=== PATIENT | female | born 1985 | race African-American/Black ===

== ENCOUNTER 2017-11-09 12:46 | Emergency (ER) | payer SELFPAY ==
[~2017-11-09] VITALS: Ht 160 cm; Wt 79.8 kg
[~2017-11-09 12:46] MED LIST: NAPR500T4 PO; OXYC-323 PO; PNV1TABL25 PO
[2017-11-09 13:00] VITALS: BP 113/64
[2017-11-09] MEDS ORDERED: NAPROXEN 500 MG TABLET PO STA (13:27)
[2017-11-09] MEDS ORDERED: HYDROcodone/APAP 5/325MG 1 TAB TABLET PO ONE (13:30)
[2017-11-09] MEDS ORDERED: HYDR-971 PO (13:58)
--- NOTE | 2017-11-09 13:58 | PHYS DOC ---
Past Medical History Past Medical History: No Pertinent History Past Surgical History: Alcohol Use: None Drug Use: None Adult General Chief Complaint Chief Complaint: LACERATION/AVULSION HPI HPI Patient is a 32 year old female who presents with labia minora lacerations, patient states she fell on a [place] tree leg. Patient denies any loss of consciousness. Review of Systems Review of Systems Constitutional: Denies fever or chills [] Eyes: Denies change in visual acuity, redness, or eye pain [] HENT: Denies nasal congestion or sore throat [] Respiratory: Denies cough or shortness of breath [] Cardiovascular: No additional information not addressed in HPI [] GI: Denies abdominal pain, nausea, vomiting, bloody stools or diarrhea [] : Denies dysuria or hematuria [] Musculoskeletal: Denies back pain or joint pain [] Integument: labia minora lacerations Neurologic: Denies headache, focal weakness or sensory changes [] All other systems were reviewed and found to be within normal limits, except as documented in this note. Current Medications Current Medications Current Medications Medications (Trade) Dose Ordered Sig/Sydnee Start Time Stop Time Status Last Admin Dose Admin Acetaminophen/ Hydrocodone Bitart (Lortab 5/325) 1 tab 1X ONCE 11/09/17 13:30 11/09/17 13:31 DC Naproxen (Naprosyn) 500 mg 1X STAT 11/09/17 13:27 11/09/17 13:31 DC 11/09/17 13:37 500 MG Allergies Allergies Allergies Coded Allergies Type Severity Reaction Last Updated Verified No Known Drug Allergies 08/09/14 No Physical Exam Physical Exam Constitutional: Well developed, well nourished, no acute distress, non-toxic appearance. [] HENT: Normocephalic, atraumatic, bilateral external ears normal, oropharynx moist, no oral exudates, nose normal. [] Eyes: PERRLA, EOMI, conjunctiva normal, no discharge. [] Neck: Normal range of motion, no tenderness, supple, no stridor. [] Cardiovascular:Heart rate regular rhythm, no murmur [] Lungs & Thorax: Bilateral breath sounds clear to auscultation [] Abdomen: Bowel sounds normal, soft, no tenderness, no masses, no pulsatile masses. [] Skin: Warm, dry, upper part of bilateral labia minora with 2 tiny lacerations one on each side of the labia minora approximately 0.5 cm each from what I could see. Patient states the exam is uncomfortable and was not willing to keep her legs spread out for full examination. The lacerations look small. Back: No tenderness, no CVA tenderness. [] Extremities: No tenderness, no cyanosis, no clubbing, ROM intact, no edema. [] Neurologic: Alert and oriented X 3, normal motor function, normal sensory function, no focal deficits noted. [] Psychologic: Affect normal, judgement normal, mood normal. [] Current Patient Data Vital Signs Vital Signs Date Time Temp Pulse Resp B/P (MAP) Pulse Ox O2 Delivery O2 Flow Rate FiO2 11/09/17 13:00 98.5 95 17 99 Room Air 98.5 EKG EKG [] Radiology/Procedures Radiology/Procedures [] Course & Med Decision Making Course & Med Decision Making Pertinent Labs and Imaging studies reviewed. (See chart for details) Patient has labial minor lacerations on both side, the lacerations were hard to examine because patient is very uncomfortable not willing to keep her legs spread out. Offered patient two choice one closing the areas as well as letting it heal on its own. Patient decided she would like the areas to heal on their own. Recommended Neosporin to the area. Instructed to keep the area clean and dry. Provided a plastic surgeon for follow-up as needed. Tetanus up to date. Dragon Disclaimer Dragon Disclaimer This electronic medical record was generated, in whole or in part, using a voice recognition dictation system. Departure Departure Impression: Primary Impression: Laceration of labia minora Disposition: 01 HOME, SELF-CARE Condition: STABLE Referrals: RUPESH DEGROOT (PCP) follow up with your doctor in one week. You can also follow up with a plastic surgeon at [facility] this week. Dr. Hines [phone] Patient Instructions: Laceration Care, Adult Additional Instructions: Yo have Labia minora lacerations. Keep the areas clean and dry. Apply Neosporin to the area twice a day. You can shower. You can follow-up with the plastic surgeon at [facility] in the course of this week. Her name is Dr. Hines phone number is [phone]. Monitor the area for signs and symptoms of infection including but not limited to increased redness to the area , yellow drainage from the area, warmth to the area and return to the Ed if they occur Scripts Hydrocodone/Apap 5-325 (NORCO 5-325 TABLET) 1 Each Tablet 1-2 TAB PO Q4-6HRS Y for PAIN, #20 TAB Prov: JOAN ANTOINE APRN 11/09/17 Problem Qualifiers Primary Impression: Laceration of labia minora Encounter type: initial encounter Qualified Codes: S31.41XA - Laceration without foreign body of vagina and vulva, initial encounter JOAN ANTOINE APRN Nov 09, 2017 13:58
== END 2017-11-09 14:05 | disposition home or self-care (01) ==
LOC: ER 12:46
DX: S31.41XA Laceration without foreign body of vagina and vulva, initial encounter (principal); W01.198A Fall on same level from slipping, tripping and stumbling with subsequent striking against other object, initial encounter; Y93.89 Activity, other specified; Y92.89 Other specified places as the place of occurrence of the external cause; Y99.8 Other external cause status
CPT/HCPCS: 99283

== ENCOUNTER 2018-07-09 23:55 | Emergency (ER) | payer SELFPAY ==
[~2018-07-09] VITALS: Ht 160 cm; Wt 79.8 kg
[~2018-07-09 23:55] MED LIST changes: +HYDR-971 PO; +NAPR-514 PO; -NAPR500T4 PO
--- NOTE | 2018-07-10 00:44 | PHYS DOC ---
Past Medical History Past Medical History: No Pertinent History Past Surgical History: Alcohol Use: None Drug Use: None Adult General Chief Complaint Chief Complaint: PAIN ON URINATION HPI HPI 33-year-old female presents to ER with complaints of 1-1/2 day history of dysuria and lower abdominal discomfort. Patient reports she also started her menstrual cycle a few days ago and does have cramping satiated with her menstrual cycles. Patient denies any fever or chills. Patient denies any nausea or vomiting. She reports she has had mild lower back pain. Patient denies any other symptoms. Patient has concerns for urinary tract infection. Patient denies any vaginal symptoms prior to onset of menstrual cycle. Review of Systems Review of Systems Constitutional: Denies fever or chills [] Eyes: Denies change in visual acuity, redness, or eye pain [] HENT: Denies nasal congestion or sore throat [] Respiratory: Denies cough or shortness of breath [] Cardiovascular: Denies chest pain or palpitations GI: Denies abdominal pain, nausea, vomiting, bloody stools or diarrhea [] : Denies hematuria. Patient reports increase in urination and dysuria Musculoskeletal: Denies joint pain or swelling. Reports mild lower back pain [] Integument: Denies rash or skin lesions [] Neurologic: Denies headache, focal weakness or sensory changes [] All other systems were reviewed and found to be within normal limits, except as documented in this note. Allergies Allergies Allergies Coded Allergies Type Severity Reaction Last Updated Verified No Known Drug Allergies 08/09/14 No Physical Exam Physical Exam Constitutional: Well developed, well nourished, no acute distress, non-toxic appearance. [] HENT: Normocephalic, atraumatic, bilateral ears normal, mucous membranes pink and moist, nose normal. [] Eyes: PERRLA, conjunctiva normal, no discharge. [] Neck: Normal range of motion, no tenderness, supple, no stridor. [] Cardiovascular:Heart rate regular rhythm, no murmur [] Lungs & Thorax: Bilateral breath sounds clear to auscultation. Resp. equal/ nonlabored Abdomen: Bowel sounds normal, soft/mild suprapubic tenderness without distention , no masses Skin: Warm, dry, no erythema, no rash. [] Back: No tenderness, no CVA tenderness. [] Extremities: No tenderness, no cyanosis, no clubbing, ROM intact, no edema. [] Neurologic: Alert and oriented X 3, normal motor function, normal sensory function, no focal deficits noted. [] Psychologic: Affect normal, judgement normal, mood normal. [] Current Patient Data Vital Signs Vital Signs Date Time Temp Pulse Resp B/P (MAP) Pulse Ox O2 Delivery O2 Flow Rate FiO2 07/10/18 00:00 98.3 85 16 118/77 (91) 100 Room Air 98.3 Lab Values Laboratory Tests Test 07/10/18 00:00 07/10/18 00:05 Urine Collection Type Unknown Urine Color Yellow Urine Clarity Cloudy Urine pH 6.5 Urine Specific [place] >=1.030 Urine Protein 100 mg/dL (NEG-TRACE) Urine Glucose (UA) Negative mg/dL (NEG) Urine Ketones (Stick) Trace mg/dL (NEG) Urine Blood Large (NEG) Urine Nitrite Positive (NEG) Urine Bilirubin Negative (NEG) Urine Urobilinogen Dipstick 1.0 mg/dL (0.2 mg/dL) Urine Leukocyte Esterase Moderate (NEG) Urine RBC Tntc /HPF (0-2) Urine WBC >40 /HPF (0-4) Urine Squamous Epithelial Cells Few /LPF Urine Bacteria Many /HPF (0-FEW) Urine Mucus Slight /LPF POC Urine HCG, Qualitative Hcg negative (Negative) EKG EKG [] Radiology/Procedures Radiology/Procedures [] Course & Med Decision Making Course & Med Decision Making Pertinent Labs reviewed. (See chart for details) [] Dragon Disclaimer Dragon Disclaimer This electronic medical record was generated, in whole or in part, using a voice recognition dictation system. Departure Departure Impression: Primary Impression: Urinary tract infection Disposition: 01 HOME, SELF-CARE Condition: STABLE Referrals: RUPESH DEGROOT (PCP) Patient Instructions: Urinary Tract Infection Additional Instructions: Drink plenty of water. Tylenol and/or Ibuprofen as needed for pain as directed on container. Pyridium prescription can can urine to be orange. Follow-up with primary doctor if symptoms persist or worsen. Scripts Phenazopyridine Hcl (PYRIDIUM) 100 Mg Tablet 100 MG PO TID, #14 TAB 0 Refills Prov: JEOVANNY MESA APRN 07/10/18 Cephalexin (KEFLEX) 500 Mg Capsule 1 CAP PO BID, #14 CAP 0 Refills Prov: REFFITT,JEOVANNY M TASSEL MAKER 07/10/18 JEOVANNY MESA APRN Jul 10, 2018 00:44
[2018-07-10 01:12] LABS: BILIRUBIN,URINE NEGATIVE (NEG); CLARITY,URINE CLOUDY; COLOR,URINE YELLOW; NITRITE,URINE POSITIVE (NEG); PH,URINE 6.5; PROTEIN,URINE 100 mg/dL (NEG-TRACE)
[2018-07-10 01:19] LABS: BACTERIA,URINE MANY /HPF (0-FEW); RBC,URINE TNTC /HPF (0-2); WBC,URINE >40 /HPF (0-4)
[2018-07-10 01:20] LABS: SQUAMOUS EPITHELIAL CELL,UR FEW /LPF
[2018-07-10] MEDS ORDERED: CEPH-264 PO (01:28)
[2018-07-10] MEDS ORDERED: PHEN100T82 PO (01:28)
[2018-07-10] MEDS ORDERED: PHENAZOPYRIDINE 200 MG TABLET. PO ONE ×2 (01:30→01:45)
[2018-07-10] MEDS ORDERED: CEPHALEXIN 250 MG CAPSULE. PO ONE (01:45)
== END 2018-07-10 01:49 | disposition home or self-care (01) ==
LOC: ER 23:55
DX: N39.0 Urinary tract infection, site not specified (principal); Z98.890 Other specified postprocedural states
CPT/HCPCS: 81001; 81025; 87086; 99284

== ENCOUNTER 2019-02-17 16:15 | Emergency (ER) | payer SELFPAY ==
[~2019-02-17] VITALS: Ht 160 cm; Wt 78.5 kg
[~2019-02-17 16:15] MED LIST changes: +CEPH-264 PO; +HYDR-3164 PO; -HYDR-971 PO; -OXYC-323 PO; +OXYC1TAB15 PO; +PHEN100T82 PO
[2019-02-17] MEDS ORDERED: IV NORMAL SALINE 500ML BAG 500 ML IV SCH (17:30)
[2019-02-17] MEDS ORDERED: MECLIZINE HCL 12.5 MG TABLET. PO ONE (17:30)
[2019-02-17 17:36] LABS: BILIRUBIN,URINE NEGATIVE (NEG); CLARITY,URINE CLEAR; COLOR,URINE YELLOW; NITRITE,URINE NEGATIVE (NEG); PH,URINE 6.5; PROTEIN,URINE NEGATIVE (NEG-TRACE)
[2019-02-17 17:36] LABS: BASO % 1 % (0-3); EOS # 0.2 x10^3/uL (0.0-0.7); EOS % 2 % (0-3); HEMATOCRIT 38.1 % (36.0-47.0); HEMOGLOBIN 12.4 g/dL (12.0-15.5); LYMPH % 31 % (24-48); MEAN CORPUSCULAR HEMOGLOBIN 29 pg (25-35); MEAN CORPUSCULAR HGB CONC 33 g/dL (31-37); MEAN CORPUSCULAR VOLUME 89 fL (79-100); MONO # 0.4 x10^3/uL (0.0-1.1); MONO % 6 % (0-9); NEUT % 60 % (31-73); PLATELET COUNT 339 x10^3/uL (140-400); RED BLOOD COUNT 4.26 x10^6/uL (3.50-5.40); RED CELL DISTRIBUTION WIDTH 13.5 % (11.5-14.5); WHITE BLOOD COUNT 6.6 x10^3/uL (4.0-11.0)
[2019-02-17 17:43] LABS: CALCIUM 9.3 mg/dL (8.5-10.1); CREATININE 0.9 mg/dL (0.6-1.0); GFR 87.8; POTASSIUM 4.2 mmol/L (3.5-5.1)
[2019-02-17 17:48] LABS: ALBUMIN/GLOBULIN RATIO 1.1 (1.0-1.7); MAGNESIUM 1.9 mg/dL (1.8-2.4); TOTAL BILIRUBIN 0.3 mg/dL (0.2-1.0); TOTAL PROTEIN 7.8 g/dL (6.4-8.2)
--- NOTE | 2019-02-17 17:56 | PHYS DOC ---
Past Medical History Past Medical History: No Pertinent History (IRON SCHWARTZ MD) Past Surgical History: (IRON SCHWARTZ MD) Additional Information: 0.25 PPD Alcohol Use: None Drug Use: None (IRON SCHWARTZ MD) Adult General Chief Complaint Chief Complaint: DIZZY/LIGHT HEADED HPI HPI Patient is a 34 year old female who presents with complaining of intermittent episodes of dizziness for couple days. Patient states she has had 2-3 episodes of dizziness that usually last for a few minutes and associated with shortness of breath without nausea, chest pain, focal neuro deficit, headache, fever and chills. Patient states the dizziness is not related to position or standing up. Patient states she had episodes of dizziness previously and diagnosed with anxiety. Patient states she gets episodes of shortness of breath sometimes at night because of anxiety. (IRON SCHWARTZ MD) Review of Systems Review of Systems Constitutional: Denies fever or chills [] Eyes: Denies change in visual acuity, redness, or eye pain [] HENT: Denies nasal congestion or sore throat [] Respiratory: Denies cough or shortness of breath [] Cardiovascular: No additional information not addressed in HPI [] GI: Denies abdominal pain, nausea, vomiting, bloody stools or diarrhea [] : Denies dysuria or hematuria [] Musculoskeletal: Denies back pain or joint pain [] Integument: Denies rash or skin lesions [] Neurologic: Denies headache, focal weakness or sensory changes [] Endocrine: Denies polyuria or polydipsia [] All other systems were reviewed and found to be within normal limits, except as documented in this note. (IRON SCHWARTZ MD) Current Medications Current Medications Current Medications Medications (Trade) Dose Ordered Sig/Sydnee Start Time Stop Time Status Last Admin Dose Admin Meclizine HCl (Antivert) 25 mg 1X ONCE 02/17/19 17:30 02/17/19 17:32 DC 02/17/19 17:46 25 MG Sodium Chloride 500 ml @ 500 mls/hr Q1H 02/17/19 17:30 02/17/19 17:47 DC 02/17/19 17:47 500 MLS/HR (THONY WEEKS DO) Allergies Allergies Allergies Coded Allergies Type Severity Reaction Last Updated Verified No Known Drug Allergies 08/09/14 No (THONY WEEKS DO) Physical Exam Physical Exam Constitutional: Well developed, well nourished, no acute distress, non-toxic appearance. [] HENT: Normocephalic, atraumatic, oropharynx moist, no oral exudates, nose normal. [] Eyes: PERRLA, EOMI, conjunctiva normal, no discharge. [] Neck: Normal range of motion, no tenderness, supple, no stridor. [] Cardiovascular:Heart rate regular rhythm, no murmur [] Lungs & Thorax: Bilateral breath sounds clear to auscultation [] Abdomen: Bowel sounds normal, soft, no tenderness, no masses, no pulsatile masses. [] Skin: Warm, dry, no erythema, no rash. [] Back: No tenderness, no CVA tenderness. [] Extremities: No tenderness, no cyanosis, no clubbing, ROM intact, no edema. [] Neurologic: Alert and oriented X 3, normal motor function, normal sensory function, no focal deficits noted. [] Psychologic: Affect anxious, judgement normal, mood normal. [] (IRON SCHWARTZ MD) Physical Exam Constitutional: No acute distress, non-toxic appearance. [] Lungs & Thorax: Airway open, No respiratory distress Abdomen: Soft, no tenderness, Skin: Warm, dry Back: No tenderness, no CVA tenderness. [] Neurologic: Alert and oriented X 3, normal motor function, normal sensory function, no focal deficits noted. [] Psychologic: Affect anxious, judgement normal (THONY WEEKS DO) Current Patient Data Vital Signs Vital Signs Date Time Temp Pulse Resp B/P (MAP) Pulse Ox O2 Delivery O2 Flow Rate FiO2 02/17/19 16:40 98.4 82 20 108/67 (81) 100 Room Air 98.4 (THONY WEEKS DO) Lab Values Laboratory Tests Test 02/17/19 16:42 02/17/19 16:48 02/17/19 17:00 Urine Color Yellow Urine Clarity Clear Urine pH 6.5 Urine Specific [place] >=1.030 Urine Protein Negative mg/dL (NEG-TRACE) Urine Glucose (UA) Negative mg/dL (NEG) Urine Ketones (Stick) Negative mg/dL (NEG) Urine Blood Negative (NEG) Urine Nitrite Negative (NEG) Urine Bilirubin Negative (NEG) Urine Urobilinogen Dipstick 1.0 mg/dL (0.2 mg/dL) Urine Leukocyte Esterase Negative (NEG) Urine RBC 0 /HPF (0-2) Urine WBC 1-4 /HPF (0-4) Urine Squamous Epithelial Cells Occ /LPF Urine Bacteria Few /HPF (0-FEW) Urine Mucus Mod /LPF POC Urine HCG, Qualitative Hcg negative (Negative) White Blood Count 6.6 x10^3/uL (4.0-11.0) Red Blood Count 4.26 x10^6/uL (3.50-5.40) Hemoglobin 12.4 g/dL (12.0-15.5) Hematocrit 38.1 % (36.0-47.0) Mean Corpuscular Volume 89 fL (79-100) Mean Corpuscular Hemoglobin 29 pg (25-35) Mean Corpuscular Hemoglobin Concent 33 g/dL (31-37) Red Cell Distribution Width 13.5 % (11.5-14.5) Platelet Count 339 x10^3/uL (140-400) Neutrophils (%) (Auto) 60 % (31-73) Lymphocytes (%) (Auto) 31 % (24-48) Monocytes (%) (Auto) 6 % (0-9) Eosinophils (%) (Auto) 2 % (0-3) Basophils (%) (Auto) 1 % (0-3) Neutrophils # (Auto) 4.0 x10^3uL (1.8-7.7) Lymphocytes # (Auto) 2.0 x10^3/uL (1.0-4.8) Monocytes # (Auto) 0.4 x10^3/uL (0.0-1.1) Eosinophils # (Auto) 0.2 x10^3/uL (0.0-0.7) Basophils # (Auto) 0.0 x10^3/uL (0.0-0.2) Sodium Level 139 mmol/L (136-145) Potassium Level 4.2 mmol/L (3.5-5.1) Chloride Level 101 mmol/L (98-107) Carbon Dioxide Level 26 mmol/L (21-32) Anion Gap 12 (6-14) Blood Urea Nitrogen 11 mg/dL (7-20) Creatinine 0.9 mg/dL (0.6-1.0) Estimated GFR (Cockcroft-Gault) 87.8 BUN/Creatinine Ratio 12 (6-20) Glucose Level 83 mg/dL (70-99) Calcium Level 9.3 mg/dL (8.5-10.1) Magnesium Level 1.9 mg/dL (1.8-2.4) Total Bilirubin 0.3 mg/dL (0.2-1.0) Aspartate Amino Transferase (AST) 14 U/L (15-37) L Alanine Aminotransferase (ALT) 19 U/L (14-59) Alkaline Phosphatase 79 U/L (46-116) Troponin I Quantitative < 0.017 ng/mL (0.000-0.055) Total Protein 7.8 g/dL (6.4-8.2) Albumin 4.0 g/dL (3.4-5.0) Albumin/Globulin Ratio 1.1 (1.0-1.7) Laboratory Tests 02/17/19 17:00 Laboratory Tests 02/17/19 17:00 (THONY WEEKS DO) EKG EKG EKG interpreted by me. EKG at 1657 showed normal sinus rhythm at rate of 85, normal FL and QT intervals, no acute ST and T-wave abnormalities. (IRON SCHWARTZ MD) Radiology/Procedures Radiology/Procedures [] (IRON SCHWARTZ MD) Course & Med Decision Making Course & Med Decision Making Pertinent Labs and Imaging studies are pending. Evaluation of patient in ER showed 34-year-old female patient with complaining of episodes of dizziness for a few days. Patient had unremarkable physical exam and EKG. Labs are pending. Patient care transferred to Dr. Weeks at 1800. (IRON SCHWARTZ MD) Course & Med Decision Making Sign out received from Dr. Schwartz for patient with episodes of dizziness. Patient does reports some increased anxiety and thinks might be secondary to stress. Patient seen and evaluated by myself. Labs reviewed and unremarkable. Patient reports she feels well and is ready for discharge home. Patient stable for discharge with outpatient follow-up with PCP. Discussed findings and plan with patient, who acknowledges understanding and agreement. (THONY WEEKS DO) Dragon Disclaimer Dragon Disclaimer This electronic medical record was generated, in whole or in part, using a voice recognition dictation system. (IRON SCHWARTZ MD) Departure Departure Impression: Primary Impression: Dizziness Additional Impression: Anxiety Disposition: 01 HOME, SELF-CARE Condition: STABLE Referrals: RUPESH DEGROOT (PCP) Patient Instructions: Anxiety and Panic Attacks, Sdkb-[id number], Dizziness, Easy- to-Read Scripts Lorazepam (ATIVAN) 0.5 Mg Tablet 0.5 MG PO TID PRN for ANXIETY, #4 TAB Prov: THONY WEEKS DO 02/17/19 Problem Qualifiers IRON SCHWARTZ MD Feb 17, 2019 17:56 THONY WEEKS DO Feb 17, 2019 18:46
[2019-02-17 17:57] LABS: BACTERIA,URINE FEW /HPF (0-FEW); RBC,URINE 0 /HPF (0-2); SQUAMOUS EPITHELIAL CELL,UR OCC /LPF
[2019-02-17] MEDS ORDERED: LORA0.5T96 PO (18:45)
[2019-02-17 19:03] VITALS: BP 103/58
--- NOTE | 2019-02-18 08:30 | EKG ---
[facility] [address] [place] [address] Test Date: 2019-02-17 Test Time: 16:57:41 Pat Name: RENNY DEAN Department: Room: Gender: F Kitchen Clerk: : 1985 Requested By: IRON SCHWARTZ Order Number: [id number] Reading MD: Rashid Carpenter MD Measurements Intervals [place] Rate: 85 P: 41 AR: 148 QRS: 3 QRSD: 80 T: 29 QT: 352 QTc: 424 Interpretive Statements SINUS RHYTHM Electronically Signed On 02-21-2019 15:51:41 CDT by Rashid Carpenter MD
== END 2019-02-17 19:09 | disposition home or self-care (01) ==
LOC: ER 16:15
DX: F41.9 Anxiety disorder, unspecified (principal); R42 Dizziness and giddiness; R06.02 Shortness of breath; F17.200 Nicotine dependence, unspecified, uncomplicated; Z98.890 Other specified postprocedural states
CPT/HCPCS: 36415; 80053; 81001; 81025; 83735; 84484; 85025; 93005; 96360; 99284; J7040; J8597

== ENCOUNTER 2019-11-01 21:41 | Emergency (ER) | payer SELFPAY ==
[~2019-11-01] VITALS: Ht 160 cm; Wt 78.5 kg
[~2019-11-01 21:41] MED LIST changes: +LORA0.5T96 PO
[2019-11-01 21:56] VITALS: BP 118/69
[2019-11-01 22:05] LABS: BILIRUBIN,URINE NEGATIVE (NEG); CLARITY,URINE CLEAR; COLOR,URINE YELLOW; NITRITE,URINE NEGATIVE (NEG); PROTEIN,URINE NEGATIVE (NEG-TRACE)
[2019-11-01 22:09] LABS: SQUAMOUS EPITHELIAL CELL,UR MOD /LPF
[2019-11-01 22:10] LABS: BACTERIA,URINE FEW /HPF (0-FEW); RBC,URINE RARE /HPF (0-2)
[2019-11-01] MEDS ORDERED: CEPH-264 PO (22:24)
--- NOTE | 2019-11-01 22:24 | PHYS DOC ---
Past Medical History Past Medical History: No Pertinent History Past Surgical History: Alcohol Use: None Drug Use: None Adult General Chief Complaint Chief Complaint: PAIN ON URINATION [facility] HPI Patient is a 34 year old female who presents with dysuria this been ongoing for 2 days. The patient states that she is sexually active but that she has had not had any partners. Her last menstrual period was October 14. Review of Systems Review of Systems Constitutional: Denies fever or chills [] Eyes: Denies change in visual acuity, redness, or eye pain [] HENT: Denies nasal congestion or sore throat [] Respiratory: Denies cough or shortness of breath [] Cardiovascular: No additional information not addressed in HPI [] GI: Denies abdominal pain, nausea, vomiting, bloody stools or diarrhea [] : Reports dysuria and white discharge. Musculoskeletal: Denies back pain or joint pain [] Integument: Denies rash or skin lesions [] Neurologic: Denies headache, focal weakness or sensory changes [] Endocrine: Denies polyuria or polydipsia [] Complete systems were reviewed and found to be within normal limits, except as documented in this note. Allergies Allergies Allergies Coded Allergies Type Severity Reaction Last Updated Verified No Known Drug Allergies 08/09/14 No Physical Exam Physical Exam Constitutional: Well developed, well nourished, no acute distress, non-toxic appearance. [] HENT: Normocephalic, atraumatic, bilateral external ears normal, oropharynx moist, no oral exudates, nose normal. [] Eyes: PERRLA, EOMI, conjunctiva normal, no discharge. [] Neck: Normal range of motion, no tenderness, supple, no stridor. [] Cardiovascular:Heart rate regular rhythm, no murmur [] Lungs & Thorax: Bilateral breath sounds clear to auscultation [] Abdomen: Bowel sounds normal, soft, no tenderness, no masses, no pulsatile masses. [] Skin: Warm, dry, no erythema, no rash. [] Neurologic: Alert and oriented X 3, normal motor function, normal sensory function, no focal deficits noted. [] Psychologic: Affect normal, judgement normal, mood normal. [] Current Patient Data Vital Signs Vital Signs Date Time Temp Pulse Resp B/P (MAP) Pulse Ox O2 Delivery O2 Flow Rate FiO2 11/01/19 21:56 98.4 83 16 118/69 (85) 100 Room Air 98.4 Lab Values Laboratory Tests Test 11/01/19 21:55 Urine Collection Type Unknown Urine Color Yellow Urine Clarity Clear Urine pH 8.0 Urine Specific [place] >=1.030 Urine Protein Negative mg/dL (NEG-TRACE) Urine Glucose (UA) Negative mg/dL (NEG) Urine Ketones (Stick) Negative mg/dL (NEG) Urine Blood Negative (NEG) Urine Nitrite Negative (NEG) Urine Bilirubin Negative (NEG) Urine Urobilinogen Dipstick 1.0 mg/dL (0.2 mg/dL) Urine Leukocyte Esterase Moderate (NEG) Urine RBC Rare /HPF (0-2) Urine WBC 11-20 /HPF (0-4) Urine Squamous Epithelial Cells Mod /LPF Urine Bacteria Few /HPF (0-FEW) Urine Mucus Slight /LPF EKG EKG [] Radiology/Procedures Radiology/Procedures [] Course & Med Decision Making Course & Med Decision Making Pertinent Labs and Imaging studies reviewed. (See chart for details) Will get UA. UA shows moderate leukocytes and bacteria. Will prescribe Keflex and d/c home. Dragon Disclaimer Dragon Disclaimer This electronic medical record was generated, in whole or in part, using a voice recognition dictation system. Departure Departure Impression: Primary Impression: UTI (urinary tract infection) Disposition: HOME, SELF-CARE Condition: STABLE Referrals: NO PCP (PCP) Patient Instructions: Urinary Tract Infection Additional Instructions: Thank you for visiting [facility]. We appreciate you trusting us with your care. If any additional problems come up don't hesitate to return to visit us. Please follow up with your primary care provider so they can plan additional care if needed and know about the problem that you had. If symptoms worsen come back to the Emergency Department. Any concerning symptoms that start such as chest pain, shortness of air, weakness or numbness on one side of the body, running high fevers or any other concerning symptoms return to the ER. You have been prescribed an antibiotic today to help fight your infection. Please take all of the antibiotic as directed. If after 48 hours the infection is not improving, please return for more care. If the infection worsens, return to ER for additional care. Scripts Cephalexin (KEFLEX) 500 Mg Capsule 1 CAP PO BID for 7 Days, #14 CAP 0 Refills Prov: THONY ROSALES APRN 11/01/19 Problem Qualifiers Primary Impression: UTI (urinary tract infection) Urinary tract infection type: acute cystitis Hematuria presence: without hematuria Qualified Codes: N30.00 - Acute cystitis without hematuria THONY ROSALES APRN Nov 01, 2019 22:24
== END 2019-11-01 22:55 | disposition home or self-care (01) ==
LOC: ER 21:41
DX: N39.0 Urinary tract infection, site not specified (principal)
CPT/HCPCS: 81001; 87086; 99284-25

== ENCOUNTER 2020-03-07 14:33 | Emergency (ER) | payer SELFPAY ==
[~2020-03-07] VITALS: Ht 160 cm; Wt 94.4 kg
[2020-03-07 14:45] VITALS: BP 131/85
[2020-03-07 14:47] LABS: BILIRUBIN,URINE NEGATIVE (NEG); CLARITY,URINE CLOUDY; COLOR,URINE YELLOW; NITRITE,URINE POSITIVE (NEG); PROTEIN,URINE 30 mg/dL (NEG-TRACE)
--- NOTE | 2020-03-07 14:49 | PHYS DOC ---
Past Medical History Past Medical History: No Pertinent History Past Surgical History: Smoking Status: Current Every Day Smoker Alcohol Use: None Drug Use: None General Adult EDM: Chief Complaint: FLANK PAIN HPI: HPI: Patient is a 35 year old female who presents with urgency, frequency, low back pain and fouls smelling urine since yesterday. Reports slight fever. Denies any nausea, vomiting or diarrhea. Review of Systems: Review of Systems: Constitutional: reports fever. Eyes: Denies change in visual acuity. [] HENT: Denies nasal congestion or sore throat. [] Respiratory: Denies cough or shortness of breath. [] Cardiovascular: Denies chest pain or edema. [] GI: Denies abdominal pain, nausea, vomiting, bloody stools or diarrhea. [] : reports dysuria, urgency, foul smelling urine. [] Musculoskeletal: Denies back pain or joint pain. [] Integument: Denies rash. [] Neurologic: Denies headache, focal weakness or sensory changes. [] Endocrine: Denies polyuria or polydipsia. [] Lymphatic: Denies swollen glands. [] Psychiatric: Denies depression or anxiety. [] Heart Score: Risk Factors: Risk Factors: DM, Current or recent (<one month) smoker, HTN, HLP, family history of CAD, obesity. Risk Scores: Score 0 - 3: 2.5% MACE over next 6 weeks - Discharge Home Score 4 - 6: 20.3% MACE over next 6 weeks - Admit for Clinical Observation Score 7 - 10: 72.7% MACE over next 6 weeks - Early Invasive Strategies Allergies: Allergies: Allergies Coded Allergies Type Severity Reaction Last Updated Verified No Known Drug Allergies 08/09/14 No Physical Exam: PE: Constitutional: Well developed, well nourished, no acute distress, non-toxic appearance. [] HENT: Normocephalic, atraumatic, bilateral external ears normal, oropharynx moist, no oral exudates, nose normal. [] Eyes: PERRLA, EOMI, conjunctiva normal, no discharge. [] Neck: Normal range of motion, no tenderness, supple, no stridor. [] Cardiovascular:Heart rate regular rhythm, no murmur [] Lungs & Thorax: Bilateral breath sounds clear to auscultation [] Abdomen: Bowel sounds normal, soft, no tenderness, no masses, no pulsatile masses. [] Skin: Warm, dry, no erythema, no rash. [] Back: No tenderness, no CVA tenderness. [] Extremities: No tenderness, no cyanosis, no clubbing, ROM intact, no edema. [] Neurologic: Alert and oriented X 3, normal motor function, normal sensory function, no focal deficits noted. [] Psychologic: Affect normal, judgement normal, mood normal. [] Current Patient Data: Labs: Laboratory Tests Test 03/07/20 14:42 POC Urine HCG, Qualitative Hcg negative (Negative) EKG: EKG: [] Radiology/Procedures: Radiology/Procedures: [] Course & Med Decision Making: Course & Med Decision Making Pertinent Labs and Imaging studies reviewed. (See chart for details) This a a 35 year old female with UTI symptoms. Running a temp of 100.4. Given ibuprofen. Positive for UTI. D/c with Cipro first dose in the Ed. Instructed to push fluids. Tylenol/ibuprofen for pain or fever. F/u with PCP in one week [place] Disclaimer: [place] Disclaimer: This electronic medical record was generated, in whole or in part, using a voice recognition dictation system. Departure Departure Impression: Primary Impression: UTI (urinary tract infection) Qualified Codes: N39.0 - Urinary tract infection, site not specified Disposition: 01 HOME, SELF-CARE Condition: STABLE Referrals: NO PCP (PCP) follow up with your doctor in 1-2 weeks Patient Instructions: Urinary Tract Infection Additional Instructions: You have a UTI. Please take the antibiotics prescribed until completed. Please push fluids. Take tylenol/ibuprofen for pain or fever. Follow up with your doctor in 1-2 weeks. Come back to the Ed if symptoms worsen. Scripts Ciprofloxacin Hcl (CIPRO) 500 Mg Tablet 1 TAB PO BID for 7 Days, #14 TAB 0 Refills Prov: MUTUNGA,JOAN SHED BOSS 03/07/20 Phenazopyridine Hcl (PYRIDIUM) 100 Mg Tablet 1 TAB PO TID for urinary discomfort for 2 Days, #6 TAB 0 Refills Prov: MUTUNGA,JOAN SHED BOSS 03/07/20 MUTUNGA,JOAN SHED BOSS Mar 07, 2020 14:49
[2020-03-07 14:53] LABS: SQUAMOUS EPITHELIAL CELL,UR MOD /LPF
[2020-03-07 14:55] LABS: BACTERIA,URINE FEW /HPF (0-FEW); WBC,URINE TNTC /HPF (0-4)
[2020-03-07] MEDS ORDERED: CIPROFLOXACIN HCL 250 MG TABLET. PO ONE (15:00)
[2020-03-07] MEDS ORDERED: PHENAZOPYRIDINE 200 MG TABLET. PO ONE (15:00)
[2020-03-07] MEDS ORDERED: IBUPROFEN 200 MG TABLET. PO ONE (15:00)
[2020-03-07] MEDS ORDERED: PHEN100T82 PO (15:03)
[2020-03-07] MEDS ORDERED: CIPR500T94 PO (15:03)
== END 2020-03-07 15:13 | disposition home or self-care (01) ==
LOC: ER 14:33
DX: N39.0 Urinary tract infection, site not specified (principal); R50.9 Fever, unspecified; M54.5 Low back pain; R35.0 Frequency of micturition; F17.200 Nicotine dependence, unspecified, uncomplicated; Z98.890 Other specified postprocedural states
CPT/HCPCS: 81001; 81025; 87086; 99284